=== PATIENT | female | born 1970 | race Caucasian/White ===

== ENCOUNTER 2016-10-08 06:28 | Day surgery (SDC) | payer OTHER ==
[2016-10-08 06:49] VITALS: BMI 32.3
[2016-10-08] MEDS ORDERED: Propofol 10 mg/ml Inj (20 ML) ONE (07:48)
--- NOTE | 2016-10-08 07:57 | CP.SDSHP ---
Same Day Surgery H & P - History Proposed Procedure: COLONSCOPY Pre-Op Diagnosis: SEE NOTES - Previous Medical/Surgical History Misc: Other Pain: 4.Moderate Pain - Allergies Allergies: Allergies No Known Allergies Allergy (Verified 08/15/15 06:45) - Physical Exam General Appearance: N Vital Signs: Vital Signs 10/08/16 07:01 Temperature 97.1 F L Pulse Rate 73 Respiratory 19 Rate Blood Pressure 143/91 H O2 Sat by Pulse 97 Oximetry Mental Status: Alert & Oriented x3 Neuro: WNL Heart: WNL Lungs: WNL GI: Other - {Optional Preform as Required} Breast: WNL Abdomen: Other Rectal: Other Integument: WNL Ortho: WNL ENT: WNL - Impression Pt. Evaluated Today:Candidate for Anesthesia & Procedure: Yes - Date & Time Time: 07:57 Short Stay Discharge - Short Stay Discharge Admitting Diagnosis/Reason for Visit: RECTAL BLEEDING Disposition: HOME/ ROUTINE Referrals: Arsh Vitale MD [Primary Care Provider] -
[2016-10-08 08:23] VITALS: TEMP 97.8
[2016-10-08] MEDS ORDERED: Belladonna-Phenobarbital PO ONE (08:30)
[2016-10-08 09:14] VITALS: BP 126/77; PULSE 58; RESP 14; O2SAT 98
== END 2016-10-08 09:12 | disposition home or self-care (01) ==
LOC: C.ENDO 06:28
PROVIDERS: ATTEND Specialist
DX: K58.9 Irritable bowel syndrome, unspecified (principal); K64.8 Other hemorrhoids
CPT/HCPCS: 45380; 84703; 88305; J2704; J3010

== ENCOUNTER → 2016-12-26 | Day surgery (SDC) | payer OTHER ==
[2016-12-26 08:21] VITALS: BMI 33.3
[2016-12-26 09:13] LABS: BASO % 0.4 % (0.0-2.0); EOS # 0.2 K/uL (0.0-0.7); EOS % 2.9 % (0.0-4.0); HEMATOCRIT 40.1 % (34.0-47.0); LYMPH # 2.2 K/uL (1.0-4.3); LYMPH % 38.7 % (20.0-40.0); MEAN CELL VOLUME 85.4 fL (81.0-99.0); MEAN CORPUSCULAR HGB CONC 33.9 g/dL (33.0-37.0); MEAN PLATELET VOLUME 7.9 fL (7.2-11.7); MONO # 0.6 K/uL (0.0-0.8); MONO % 9.9 % (0.0-10.0); NRBC % 0.1 % (0.0-2.0); RED CELL DISTRIBUTION WIDTH 13.7 % (11.5-14.5); WHITE BLOOD COUNT 5.7 K/uL (4.8-10.8)
[2016-12-26 10:51] LABS: CHLORIDE 102 mmol/L (98-107); POTASSIUM 4.1 mmol/L (3.6-5.2); SODIUM 136 mmol/L (132-148)
[2016-12-26 10:54] LABS: BLOOD UREA NITROGEN 13 mg/dL (7-17); CARBON DIOXIDE 27 mmol/L (22-30); GFR AFRICAN-AMERICAN > 60; GLUCOSE,RANDOM 81 mg/dL (65-105)
[2016-12-26 10:55] LABS: CALCIUM 8.7 mg/dl (8.6-10.4)
--- NOTE | 2016-12-27 11:49 | CARD ---
APPROVED REPORT EKG Measurement Heart [id number] <Conclusion> Normal sinus rhythm Septal infarct, age undetermined Abnormal ECG
== END | disposition home or self-care (01) ==
LOC: C.PAT 08:12
PROVIDERS: ATTEND Surgery
DX: Z04.8 Encounter for examination and observation for other specified reasons (principal)

== ENCOUNTER 2016-12-30 09:05 | Day surgery (SDC) | payer OTHER ==
[2016-12-26 08:23] VITALS: BMI 33.3
[2016-12-30] MEDS ORDERED: Lactated Ringer's 1,000 ML IV ONE ×3 (13:55→15:02)
[2016-12-30] MEDS ORDERED: Oxycodone/Acetaminophen 5/325 mg Tab PO PRN (15:04)
[2016-12-30] MEDS ORDERED: HYDROmorphone 0.5 mg/0.5 ml ISec IVP PRN (15:08)
[2016-12-30] MEDS ORDERED: ceFAZolin 1 gm FROZEN Premix 1 GM/50 ML ML IVPB ONE (15:11)
[2016-12-30] MEDS ORDERED: Absorbable Gelatin Sponge Size 12-7 ONE (15:12)
[2016-12-30] MEDS ORDERED: Bupivacaine HCl 0.25% PF (10 ml) Inj ONE (15:12)
[2016-12-30] MEDS ORDERED: Lactated Ringer's 1,000 ML IV SCH (15:15)
[2016-12-30] MEDS ORDERED: Lactated Ringer's 500 ML IV ONE (15:19)
[2016-12-30 18:50] VITALS: BP 150/85; PULSE 86; RESP 20; TEMP 97.3; O2SAT 100
--- NOTE | 2017-01-04 02:39 | OP ---
PROCEDURE DATE: 12/30/2016 PREOPERATIVE DIAGNOSES: 1. Complex hemorrhoids. 2. Rectal prolapse. PROCEDURE PERFORMED: 1. Complex hemorrhoidectomy. 2. Altemeier procedure for rectal prolapse. 3. Rectal advancement flap closure. SURGEON: Dane Vasquez MD ANESTHESIA: General endotracheal. BLOOD LOSS: 50 mL. POSTOPERATIVE CONDITION: Stable. INDICATIONS FOR SURGERY: This is a 46-year-old female with severe longstanding complex hemorrhoids associated with partial rectal prolapse. Now, admitted for surgical treatment. GROSS FINDINGS: There were complex mixed internal and external hemorrhoids in the left lateral and right posterior positions. Also associated on the left side of mucosa was a rectal prolapse, which was repaired at the time of hemorrhoidectomy utilizing an Altemeier-type procedure. DESCRIPTION OF PROCEDURE: The patient was taken to the operating room and general anesthesia was administered. She was then placed in the prone jackknife position and the buttocks were taped open. Anoscopy was performed with the above findings. The right posterior hemorrhoid was grasped with two paul clamps and ligated at the base using a heavy chromic. Utilizing a generous elliptical incision, the pre-hemorrhoid bundle was excised down to the internal sphincter and bleeding was controlled using the Bovie. The mucosa was reapproximated after advancement flaps were raised by undermining use of the Bovie, using two layers of the running heavy chromic suture. Attention was then turned to the left lateral hemorrhoid bundle, which again was excised in the usual fashion before the wound was sutured. The redundant mucosa was delivered. The uterine incision just above the dentate line transected and the mucosa was reapproximated to the anal verge using heavy chromic suture. The remaining portion of the hemorrhoid incision was also reapproximated after a flap was again raised. The total advancement flap area was 12 sq cm. The incisions were found to be hemostatic. The anal canal was packed with Gelfoam an anal block was placed with 0.25% Marcaine. The patient tolerated the procedure well and returned to the recovery room in stable condition. Dane Vasquez MD
== END 2016-12-30 18:35 | disposition home or self-care (01) ==
LOC: C.SDS 09:05
PROVIDERS: ATTEND Surgery
DX: K62.3 Rectal prolapse (principal); K64.8 Other hemorrhoids
CPT/HCPCS: 46260; 88304; J1170; J2001; J7120

== ENCOUNTER 2018-06-24 19:59 | Emergency (ER) | payer OTHER ==
[2018-06-24 20:00] VITALS: BMI 33.3
[2018-06-24 20:14] VITALS: BP 140/100; PULSE 64; RESP 14; TEMP 98.9; O2SAT 98
--- NOTE | 2018-06-24 21:08 | C.PDOC ---
History Of Present Illness 48-year-old female presents to the ED for evaluation of itchy red spots noted on her right breast/abdominal wall around two days ago. Patient states she checked her house but was unable to find any bugs. She has been applying Aveeno cream to the areas but still has itchiness and presents to the ED for further evaluation. She denies fever, chills, shortness of breath. Time Seen by Provider: 06/24/18 20:54 Chief Complaint (Nursing): Abnormal Skin Integrity History Per: Patient History/Exam Limitations: no limitations Onset/Duration Of Symptoms: Days (2) Current Symptoms Are (Timing): Still Present Location Of Injury: Right: Abdomen, Chest Quality Of Symptoms: Itching Additional History Per: Patient Past Medical History Reviewed: Historical Data, Nursing Documentation, Vital Signs Vital Signs: Last Vital Signs Temp 98.9 F 06/24/18 20:11 Pulse 64 06/24/18 20:11 Resp 14 06/24/18 20:11 BP 140/100 H 06/24/18 20:11 Pulse Ox 98 06/24/18 20:11 - Medical History PMH: Anemia, Bronchitis (WHEN CHILD), Gastritis Denies: Chronic Kidney Disease Surgical History: Endoscopy - [facility] Procedures CLOSED ENDOSCOPIC BIOPSY OF LARGE INTESTINE (11/22/14) Family History: States: Unknown Family Hx - Social History Hx Alcohol Use: No Hx Substance Use: No - Immunization History Hx Tetanus Toxoid Vaccination: No Hx Influenza Vaccination: No Hx Pneumococcal Vaccination: No Review Of Systems Constitutional: Negative for: Fever, Chills Respiratory: Negative for: Shortness of Breath Skin: Positive for: Other (itchy spots to right breast/abdominal wall) Physical Exam - Physical Exam Appears: Non-toxic, No Acute Distress Skin: Normal Color, Warm, Dry, Other (several small papules in linear arrangement to right chest wall, right breast and mid-right upper abdomen regions. no evidence of cellulitis ) Head: Atraumatic, Normacephalic Oral Mucosa: Moist Chest: Symmetrical, No Deformity, No Tenderness Cardiovascular: Rhythm Regular, No Murmur Respiratory: Normal Breath Sounds, No Rales, No Rhonchi, No Wheezing Gastrointestinal/Abdominal: Soft, No Tenderness, No Guarding, No Rebound Extremity: Normal ROM, Capillary Refill (less than 2 seconds ) Neurological/Psych: Oriented x3, Normal Speech, Normal Cognition ED Course And Treatment O2 Sat by Pulse Oximetry: 98 (on RA) Pulse Ox Interpretation: Normal Disposition - Disposition Disposition: HOME/ ROUTINE Disposition Time: 21:04 Condition: STABLE Prescriptions: Triamcinolone 0.1% [Triamcinolone 0.1% Cream] 0.1 cre TP BID #30 gm Instructions: Insect Bites and Stings Forms: [facility] ([place]ian) - Clinical Impression Clinical Impression: Insect bite - wound - Scribe Statement The provider has reviewed the documentation as recorded by the Scribe (Khushbu Perera) Provider Attestation: All medical record entries made by the Scribe were at my direction and personally dictated by me. I have reviewed the chart and agree that the record accurately reflects my personal performance of the history, physical exam, medical decision making, and the department course for this patient. I have also personally directed, reviewed, and agree with the discharge instructions and disposition.
--- NOTE | 2018-06-24 21:10 | C.PDOC ---
Time Seen by Provider: 06/24/18 20:54 Chief Complaint (Nursing): Abnormal Skin Integrity Past Medical History Vital Signs: Last Vital Signs Temp 98.9 F 06/24/18 20:11 Pulse 64 06/24/18 20:11 Resp 14 06/24/18 20:11 BP 140/100 H 06/24/18 20:11 Pulse Ox 98 06/24/18 20:11 - Medical History PMH: Anemia, Bronchitis (WHEN CHILD), Gastritis Denies: Chronic Kidney Disease Surgical History: Endoscopy - [facility] Procedures CLOSED ENDOSCOPIC BIOPSY OF LARGE INTESTINE (11/22/14) - Social History Hx Alcohol Use: No Hx Substance Use: No - Immunization History Hx Tetanus Toxoid Vaccination: No Hx Influenza Vaccination: No Hx Pneumococcal Vaccination: No ED Course And Treatment O2 Sat by Pulse Oximetry: 98 Disposition - Disposition Disposition: HOME/ ROUTINE Disposition Time: 21:04 Condition: STABLE Prescriptions: Triamcinolone 0.1% [Triamcinolone 0.1% Cream] 0.1 cre TP BID #30 gm Instructions: Insect Bites and Stings - Clinical Impression Clinical Impression: Insect bite - wound
== END 2018-06-24 21:41 | disposition home or self-care (01) ==
LOC: C.ER 19:59
DX: S20.361A Insect bite (nonvenomous) of right front wall of thorax, initial encounter (principal); S30.861A Insect bite (nonvenomous) of abdominal wall, initial encounter; W57.XXXA Bitten or stung by nonvenomous insect and other nonvenomous arthropods, initial encounter

== ENCOUNTER 2018-08-04 18:14 | Emergency (ER) | payer MEDICAID, OTHER ==
[2018-08-04 18:52] VITALS: BP 158/84; PULSE 98; RESP 18; TEMP 99.4; O2SAT 96; BMI 31.8
[2018-08-04] MEDS ORDERED: Albuterol-Ipratrop 3 mg / 0.5 (3 ml) UD INH STA (19:40)
--- NOTE | 2018-08-04 19:44 | C.PDOC ---
History Of Present Illness 48 year old female with Hx of recent bronchitis in 05/2018, at that time given albuterol which helped, started coughing again since yesterday. She reports associated mild SOB, nasal congestion, and post nasal drip. Patient has not taken any medication for it. Denies fever. No other medical Hx. Time Seen by Provider: 08/04/18 19:19 Chief Complaint (Nursing): Cough, Cold, Congestion History Per: Patient History/Exam Limitations: no limitations Onset/Duration Of Symptoms: Other (Yesterday) Current Symptoms Are (Timing): Still Present Location Of Pain: None Sick Contacts (Context): None Associated Symptoms: Cough, Nasal Congestion, Other (Mild SOB, Post nasal drip). denies: Fever Recent travel outside of the [place]: No Past Medical History Reviewed: Historical Data, Nursing Documentation, Vital Signs Vital Signs: Last Vital Signs Temp 99.4 F 08/04/18 18:34 Pulse 98 H 08/04/18 18:34 Resp 18 08/04/18 18:34 BP 158/84 H 08/04/18 18:34 Pulse Ox 96 08/04/18 18:34 Primary Care Provider: Non [facility] Provider, - Medical History PMH: Anemia, Bronchitis (WHEN CHILD), Gastritis Denies: Chronic Kidney Disease Surgical History: Endoscopy - [facility] Procedures CLOSED ENDOSCOPIC BIOPSY OF LARGE INTESTINE (11/22/14) Family History: States: Unknown Family Hx - Social History Hx Alcohol Use: No Hx Substance Use: No - Immunization History Hx Tetanus Toxoid Vaccination: No Hx Influenza Vaccination: No Hx Pneumococcal Vaccination: No Review Of Systems Constitutional: Negative for: Fever, Chills ENT: Positive for: Nose Congestion, Other (Post nasal drip) Cardiovascular: Negative for: Chest Pain, Palpitations Respiratory: Positive for: Cough, Shortness of Breath Gastrointestinal: Negative for: Nausea, Vomiting Musculoskeletal: Negative for: Back Pain Skin: Negative for: Rash Physical Exam - Physical Exam Appears: Non-toxic Skin: Normal Color, Warm Head: Atraumatic, Normacephalic Eye(s): bilateral: Normal Inspection Ear(s): Bilateral: Normal Nose: Other (Enlarged turbinates bilaterally) Oral Mucosa: Moist Throat: Normal, No Erythema, No Exudate Neck: Normal, Supple Chest: Symmetrical, No Tenderness Cardiovascular: Rhythm Regular Respiratory: Normal Breath Sounds, No Accessory Muscle Use, Other (Moving air well, speaking in full sentences) Neurological/Psych: Oriented x3, Normal Speech ED Course And Treatment O2 Sat by Pulse Oximetry: 96 (Room air) Pulse Ox Interpretation: Normal Medical Decision Making Medical Decision Making: Will treat for bronchitis. Patient is afebrile and in no respiratory distress at this time, left the ER comfortably. 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 - Scribe Statement The provider has reviewed the documentation as recorded by the Scribe Mich Erickson All medical record entries made by the Kateyibmahnaz were at my direction and personally dictated by me. I have reviewed the chart and agree that the record a ccurately reflects my personal performance of the history, physical exam, medical decision making, and the department course for this patient. I have also personally directed, reviewed, and agree with the discharge instructions and disposition.
[2018-08-04] MEDS ORDERED: Albuterol-Ipratrop 3 mg / 0.5 (3 ml) UD ONE (20:15)
== END 2018-08-04 21:02 | disposition home or self-care (01) ==
LOC: C.ER 18:14
DX: J40 Bronchitis, not specified as acute or chronic (principal)